=== PATIENT | female | born 1935 | race Caucasian/White ===

== ENCOUNTER 2016-08-04 09:45 | Outpatient (RCR) | payer MEDICARE, BC ==
[~2016-08-04 09:45] MED LIST: ASPIRIN 81M81 MG/TA2 PO; CRESTOR20 MG PO; GLUCOPHAGE1000 MG PO; K-DUR 2020 MEQ PO; LASIX 20MG TABL20 MG PO; LEVAQUIN 5500 MG/TA1 PO; LIPITOR20 MG PO; LOPID 600M600 MG/TAB PO; LOPRESSOR 225 MG/TAB PO; LORTAB 5/500 501 TAB PO; MIRALAX PA17 GM/Dose PO; NEXIUM 20MG CAP20 MG PO; NORCO 325 MG-51 TAB PO; PLAVIX 75MG TAB75 MG PO; PRINIVIL10 MG PO; PROTONIX 40MG T40 MG PO; PROTONIX40 MG/Pack PO; SYNTHROID0.075 MG/T PO; SYNTHROID0.1 MG PO; TYLENOL 325MG325 MG PO; VITAMIN D1000 IU PO; VITAMIN D31000 IU PO; ZOFRAN 4MG T4 MG/TAB PO
== END 2016-08-05 14:26 | disposition home or self-care (01) ==
LOC: WSOT 09:45
DX: M79.641 Pain in right hand (principal); M19.041 Primary osteoarthritis, right hand; M79.642 Pain in left hand; M19.042 Primary osteoarthritis, left hand
CPT/HCPCS: G8987-GO; G8988-GO; G8989-GO

== ENCOUNTER 2017-08-12 10:45 | Outpatient (RCR) | payer MEDICARE, BC ==
[~2017-08-12 10:45] MED LIST changes: -VITAMIN D1000 IU PO; +VITAMIND3 5000 PO
[2017-09-22] MEDS ORDERED: ZANTAC 7575 MG PO (17:24)
[2017-09-22] MEDS ORDERED: LIPITOR20 MG PO (17:30)
[2017-09-24] MEDS ORDERED: CLEOCIN HCL300 MG PO (20:04)
== END 2017-09-27 09:00 | disposition home or self-care (01) ==
LOC: MKS.ESL.PT 10:45
DX: R25.2 Cramp and spasm (principal)
CPT/HCPCS: G8978-GP; G8979-GP; G8980-GP

== ENCOUNTER 2018-01-25 10:30 | Outpatient (RCR) | payer MEDICARE, BC ==
[~2018-01-25 10:30] MED LIST changes: +CLEOCIN HCL300 MG PO; +ZANTAC 7575 MG PO
== END 2018-01-26 10:37 | disposition home or self-care (01) ==
LOC: MKS.ESL.PT 10:30
DX: R26.89 Other abnormalities of gait and mobility (principal); R29.6 Repeated falls
CPT/HCPCS: G8981-GP; G8982-GP; G8983-GP

== ENCOUNTER → 2018-03-16 | Outpatient (CLI) | payer MEDICARE, BC | LOC: MC.RAD 13:40 | DX: Z12.31 Encounter for screening mammogram for malignant neoplasm of breast (principal) ==

== ENCOUNTER → 2018-05-30 | Outpatient (CLI) | payer MEDICARE, BC ==
[2018-05-30 07:27] LABS: HEMOGLOBIN 11.8 g/dl (12.5-16.0); MEAN CELL VOLUME 98 fl (80.0-100.0); MEAN CORPUSCULAR HEMOGLOBIN 32 pg (27.0-31.0); MEAN CORPUSCULAR HGB CONC 32 g/dl (33.0-37.0); MEAN PLATELET VOLUME 10.2 fl (7.4-10.4); PLATELET COUNT 208 K/mm3 (130-400); RED BLOOD COUNT 3.72 M/mm3 (4.10-5.30); REDCELL DISTRIBUTION WIDTH-CV 13.4 % (11.5-14.5)
[2018-05-30 07:30] LABS: HEMATOCRIT 36.6 % (37.0-47.0)
[2018-05-30 07:35] LABS: PROTHROMBIN TIME 11.9 SECONDS (9.7-12.8)
[2018-05-30 07:42] LABS: CALCIUM 9.7 mg/dL (8.4-10.2); CREATININE, serum 1.3 mg/dL (0.52-1.25); POTASSIUM 3.8 mmol/L (3.4-5.0)
== END ==
LOC: COL.LAB 07:02
PROVIDERS: Internal Medicine Interventional Cardiology
DX: I49.5 Sick sinus syndrome (principal)

== ENCOUNTER 2018-12-01 09:21 | Outpatient (RCR) | payer MEDICARE, BC | END 2019-03-01 | LOC: MKS.ESL.PT | DX: R26.89 Other abnormalities of gait and mobility (principal); R29.6 Repeated falls ==

== ENCOUNTER → 2019-04-03 | Outpatient (CLI) | payer MEDICARE, BC | LOC: MC.RAD 09:30 | DX: Z12.31 Encounter for screening mammogram for malignant neoplasm of breast (principal) ==

== ENCOUNTER 2019-09-03 16:47 | Observation (INO) | payer MEDICARE, BC ==
[~2019-09-03] VITALS: Ht 157.5 cm; Wt 53.4 kg
[2019-09-03 17:33] LABS: BASO # 0.1 (0.0-0.2); EOS # 0.1 (0.0-0.7); EOS % 1.8 % (0-4.0); GRAN # 4.6 (1.4-6.5); GRAN % 59.8 % (42.2-75.2); HEMATOCRIT 37.7 % (37.0-47.0); HEMOGLOBIN 11.9 g/dl (12.5-16.0); LYMPH # 2.2 (1.2-3.4); MEAN CELL VOLUME 99 fl (80.0-100.0); MEAN CORPUSCULAR HEMOGLOBIN 31 pg (27.0-31.0); MEAN CORPUSCULAR HGB CONC 32 g/dl (33.0-37.0); MEAN PLATELET VOLUME 10.4 fl (7.4-10.4); MONO # 0.6 (0.1-0.6); MONO % 8.3 % (1.7-9.3); PLATELET COUNT 243 K/mm3 (130-400); REDCELL DISTRIBUTION WIDTH-CV 14.1 % (11.5-14.5)
[2019-09-03 17:36] LABS: ALANINE AMINOTRANSFERASE 18 U/L (4-34); ALBUMIN 4.3 gm/dL (3.5-5.0); ALKALINE PHOSPHATASE 89 U/L (50-136); ANION GAP 10 mmol/L (7-16); AST,SGOT 30 U/L (15-37); BILIRUBIN,TOTAL 0.4 mg/dL (0.0-1.0); BLOOD UREA NITROGEN 32 mg/dL (7-17); CALCIUM 10.1 mg/dL (8.4-10.2); CARBON DIOXIDE 29 mmol/L (22-30); CHLORIDE 103 mmol/L (98-107); CREATININE, serum 1.23 (0.52-1.25); GLUCOSE 94 mg/dL (74-106); LIPASE 126 U/L (23-300); POTASSIUM 4.1 mmol/L (3.4-5.0); SODIUM 143 mmol/L (137-145); TOTAL PROTEIN 7.5 gm/dL (6.4-8.2)
[2019-09-03 17:51] LABS: TROPONIN-I < 0.012 ng/mL (0.000-0.035)
[2019-09-03 18:10] LABS: COLLECTION METHOD CLEAN CATCH
[2019-09-03 18:15] LABS: PH 5 (5-8); SQUAMOUS EPITHELIAL None Seen /hpf; URINE APPEARANCE Clear; URINE BACTERIA None Seen /hpf; URINE BILIRUBIN Negative (NEGATIVE); URINE BLOOD Negative (NEGATIVE); URINE COLOR Straw; URINE GLUCOSE Negative (NEGATIVE); URINE KETONE Negative (NEGATIVE); URINE LEUKOCYTE ESTERASE Negative (NEGATIVE); URINE NITRATE Negative (NEGATIVE); URINE PROTEIN(semi-quant) Negative (NEGATIVE); URINE RBC 0-2 /hpf; URINE UROBILINOGEN Negative (NEGATIVE)
[2019-09-03] MEDS ORDERED: TOPROL XL 25MG25 MG PO (20:52)
[2019-09-03] MEDS ORDERED: LIPITOR 80MG80 MG PO (20:53)
[2019-09-03] MEDS ORDERED: NEURONTIN100 MG/CAP PO (20:53)
[2019-09-03] MEDS ORDERED: NITROSTAT0.4 MG/TAB SL (20:54)
[2019-09-03 21:33] LABS: INR 1.1 (0.8-3.0); PROTHROMBIN TIME 12.9 SECONDS (9.7-12.8)
--- NOTE | 2019-09-03 21:35 | NUR ---
Received patient from ER via stretcher. Patient is alert and oriented. On standby assist. Patient states she doesn't have chest pain at the moment. With IV at right AC, infusing NS. Assessment done. Patient asked if she can have something to eat or drink. This nurse called RITA De Oliveira and she said she can eat anything for now but NPO by midnight. Gave box of sandwich to patient, was able to consume 50%.
[2019-09-03 21:36] LABS: PARTIAL THROMBOPLASTIN TIME 33.7 SECONDS (26.0-37.0)
[2019-09-03 21:41] VITALS: BP 142/57; PULSE 80; TEMP 97.6
[2019-09-03 21:56] LABS: TROPONIN-I 3 HR POST INITIAL < 0.012 ng/mL (0.000-0.034)
[2019-09-03 22:07] LABS: MAGNESIUM 1.8 mg/dL (1.6-2.3)
[2019-09-03] MEDS ORDERED: FOSAMAX 70MG TA70 MG PO (22:15)
[2019-09-03] MEDS ORDERED: TYLENOL 500MG500 MG PO (22:16)
[2019-09-03] MEDS ORDERED: ACIDOPHILIS PO (22:18)
[2019-09-03] MEDS ORDERED: ZITHROMAX500 M2 PO (22:18)
[2019-09-03] MEDS ORDERED: B-12 500 MCG PO (22:19)
[2019-09-03] MEDS ORDERED: TYLENOL 8 HR PO (22:22)
[2019-09-03 23:22] VITALS: BP 130/53; PULSE 64; TEMP 97.6
[2019-09-04] VITALS (10 sets, daily range): BP systolic 98–141; BP diastolic 45–64; PULSE 58–85; TEMP 97.6–98.2
[2019-09-04 06:54] LABS: ALANINE AMINOTRANSFERASE 16 U/L (4-34); ALBUMIN 3.4 gm/dL (3.5-5.0); ALKALINE PHOSPHATASE 70 U/L (50-136); ANION GAP 7 mmol/L (7-16); AST,SGOT 24 U/L (15-37); BILIRUBIN,TOTAL 0.3 mg/dL (0.0-1.0); BLOOD UREA NITROGEN 26 mg/dL (7-17); CALCIUM 8.7 mg/dL (8.4-10.2); CARBON DIOXIDE 23 mmol/L (22-30); CHLORIDE 111 mmol/L (98-107); CHOLESTEROL 137 mg/dL (120-200); CHOLESTEROL RISK RATIO 3.3; CREATININE, serum 1.08 (0.52-1.25); GLUCOSE 88 mg/dL (74-106); HDL CHOLESTEROL 41 mg/dL; LDL CHOLESTEROL 74 mg/dL; POTASSIUM 3.9 mmol/L (3.4-5.0); SODIUM 141 mmol/L (137-145); TRIGLYCERIDE 110 mg/dL
[2019-09-04 07:00] LABS: BASO # 0.1 (0.0-0.2); BASO % 0.9 % (0.0-2.0); EOS # 0.1 (0.0-0.7); GRAN # 3.9 (1.4-6.5); GRAN % 56.5 % (42.2-75.2); HEMOGLOBIN 10.3 g/dl (12.5-16.0); LYMPH # 2.1 (1.2-3.4); LYMPH % 30.9 % (20.0-51.0); MEAN CELL VOLUME 98 fl (80.0-100.0); MEAN CORPUSCULAR HEMOGLOBIN 31 pg (27.0-31.0); MEAN CORPUSCULAR HGB CONC 32 g/dl (33.0-37.0); MEAN PLATELET VOLUME 10.4 fl (7.4-10.4); MONO # 0.7 (0.1-0.6); MONO % 9.4 % (1.7-9.3); PLATELET COUNT 196 K/mm3 (130-400); RED BLOOD COUNT 3.32 M/mm3 (4.10-5.30); REDCELL DISTRIBUTION WIDTH-CV 14.1 % (11.5-14.5)
[2019-09-04 07:07] LABS: HEMATOCRIT 32.6 % (37.0-47.0)
[2019-09-04 07:08] LABS: TROPONIN-I < 0.012 ng/mL (0.000-0.035)
--- NOTE | 2019-09-04 07:23 | NUR ---
Patient had an uneventful night. Denies any chest pain. She is independent and able to ambulate going to the bathroom. Maintained on NPO.
--- NOTE | 2019-09-04 10:20 | NUR ---
PATIENT IS ALERT AND ORIENTED. DENIES ANY PAIN AT THE MOMENT BUT HAD AN EPISODE OF DULL CHEST PAIN VERY EARLY THIS MORNING. PATIENT HAD AN ECHO THIS MORNING. DAUGHTER VISITING AT BED SIDE.
--- NOTE | 2019-09-04 16:19 | NUR ---
Entry Level Drafter met with patient, patient's Wolf (ph#[phone]), and patient's daughter Laverne (ph#[phone]) to discuss discharge planning. Patient lives in [place] with Wolf and sees Dr. Gilliland for primary care. Patient obtains medications from [facility] pharmacy with no difficulties. Patient states she sometimes picks up her medications and sometimes she has them delivered. Patient does not use any DME and reports independence with ADLS. Patient reports she has DPOA-HC completed and plans to return home upon discharge. SW to continue to follow as needed.
--- NOTE | 2019-09-04 17:24 | NUR ---
patient is alert and oriented. denies any pain at this time. pt had echo and artemio scan today. diet was changed from NPO to AHA. Further decision will be determined by the result of artemio scan. Patient is a possible discharge for 09/05/19 if no further action is required. family came visiting today.
--- NOTE | 2019-09-04 18:10 | NUR ---
patient refuse ducosate, she said she only take it once a week.
--- NOTE | 2019-09-04 20:46 | NUR ---
Pt doing well. Alert and oriented with vss. Heart and lung sounds normal. On tele, paced normal sinus. Bowel sounds audible all quad. Voiding clear yellow urine. Stated she had diarrhea this AM but has since resolved. Ambulatory in room. Pedal pulses present and strong. Pt denies pain, chest pain, sob. Denies needs at this time. Call light within reach. Will continue to monitor
[2019-09-05 00:35] VITALS: BP 103/52; PULSE 61; TEMP 98
[2019-09-05 04:56] VITALS: BP 106/46; PULSE 61; TEMP 98.3
--- NOTE | 2019-09-05 05:47 | NUR ---
Pt has done very well throughout night. No needs. Denies chest pain or SOB. Ambulatory in room. Denies needs at this time, call light within reach, will continue to monitor
[2019-09-05 08:05] VITALS: BP 115/56; PULSE 65; TEMP 98.1
--- NOTE | 2019-09-05 10:00 | NUR ---
DISCHARGE INFORMATION PROVIDED TO PT. NO QUESTIONS VOICED. IV REMOVED BY GREY KEITH, NO ISSUES NOTED. NO C/O CHEST PAIN TODAY. WAS EAGER TO DISCHARGE. TELE REMOVED SO PT CAN GET DRESSED. PT CALLED HER FOR A RIDE AND WILL LET US KNOW UPON HIS ARRIVAL TO GO HOME.
--- NOTE | 2019-09-05 10:21 | NUR ---
Pump Runner attended clinical rounds with the team and patient to discharge home today. No additional needs identified at this time.
--- NOTE | 2019-09-05 10:30 | NUR ---
PT ESCORTED EMELI VIA W/C BY THIS NURSE. ASSISTED TO CAR. DRIVING HER HOME.
== END 2019-09-05 10:30 | disposition home or self-care (01) ==
LOC: COL.ER 16:47 → MEDICAL 19:37
PROVIDERS: Emergency Medicine; Nurse Practitioner Family; ADMIT Student in an Organized Health Care Education/Training Program
DX: R07.9 Chest pain, unspecified (principal); I10 Essential (primary) hypertension; E78.5 Hyperlipidemia, unspecified; I25.10 Atherosclerotic heart disease of native coronary artery without angina pectoris; E11.9 Type 2 diabetes mellitus without complications; E03.9 Hypothyroidism, unspecified; I08.1 Rheumatic disorders of both mitral and tricuspid valves; Z95.1 Presence of aortocoronary bypass graft; Z95.2 Presence of prosthetic heart valve; Z85.72 Personal history of non-Hodgkin lymphomas; Z88.1 Allergy status to other antibiotic agents; Z88.0 Allergy status to penicillin; Z88.8 Allergy status to other drugs, medicaments and biological substances; Z79.82 Long term (current) use of aspirin; Z86.73 Personal history of transient ischemic attack (TIA), and cerebral infarction without residual deficits; Z92.21 Personal history of antineoplastic chemotherapy; Z90.710 Acquired absence of both cervix and uterus; Z90.49 Acquired absence of other specified parts of digestive tract; Z95.0 Presence of cardiac pacemaker
CPT/HCPCS: A9500; G0378; J1650; J2785; J7030; Q9967

== ENCOUNTER 2019-09-07 16:41 | Emergency (ER) | payer MEDICARE, BC ==
[~2019-09-07] VITALS: Ht 157.5 cm; Wt 50.9 kg
[2019-09-07 17:04] VITALS: BP 137/63; PULSE 62; TEMP 97.6
== END 2019-09-07 19:06 | disposition left against medical advice (07) ==
LOC: COL.ER 16:41
DX: S00.83XA Contusion of other part of head, initial encounter (principal); S60.031A Contusion of right middle finger without damage to nail, initial encounter; W19.XXXA Unspecified fall, initial encounter

== ENCOUNTER → 2019-09-07 | Outpatient (CLI) | payer MEDICARE, BC ==
[~2019-09-07] MED LIST changes: +ACIDOPHILIS PO; +B-12 500 MCG PO; +FOSAMAX 70MG TA70 MG PO; +LIPITOR 80MG80 MG PO; +NEURONTIN100 MG/CAP PO; +NITROSTAT0.4 MG/TAB SL; +TOPROL XL 25MG25 MG PO; +TYLENOL 500MG500 MG PO; +TYLENOL 8 HR PO; +ZITHROMAX500 M2 PO
== END ==
LOC: COL.RAD 15:06
DX: G44.319 Acute post-traumatic headache, not intractable (principal); S62.91XA Unspecified fracture of right hand, initial encounter for closed fracture; M19.041 Primary osteoarthritis, right hand; M19.031 Primary osteoarthritis, right wrist; G31.9 Degenerative disease of nervous system, unspecified; Z98.890 Other specified postprocedural states

== ENCOUNTER 2019-09-08 10:11 | Emergency (ER) | payer MEDICARE, BC ==
[~2019-09-08] VITALS: Ht 157.5 cm; Wt 50.9 kg
[2019-09-08 10:14] VITALS: BP 148/65; PULSE 85; TEMP 97.7
== END 2019-09-08 10:28 | disposition home or self-care (01) ==
LOC: COL.ER 10:11
DX: S60.031A Contusion of right middle finger without damage to nail, initial encounter (principal); Z79.82 Long term (current) use of aspirin; W19.XXXA Unspecified fall, initial encounter

== ENCOUNTER → 2019-11-05 | Outpatient (CLI) | payer MEDICARE, BC ==
[2019-11-05 21:08] LABS: ANION GAP 6 mmol/L (7-16); BLOOD UREA NITROGEN 26 mg/dL (7-17); CALCIUM 9.6 mg/dL (8.4-10.2); CARBON DIOXIDE 29 mmol/L (22-30); CHLORIDE 102 mmol/L (98-107); CREATININE, serum 1.06 (0.52-1.25); GLUCOSE 81 mg/dL (74-106); POTASSIUM 4.4 mmol/L (3.4-5.0); SODIUM 138 mmol/L (137-145)
[2019-11-05 21:14] LABS: C-REACTIVE PROTEIN < 0.5 mg/dL (0.0-0.9)
== END ==
LOC: ZCOL.LAB 16:13
PROVIDERS: Internal Medicine Interventional Cardiology
DX: E50.9 Vitamin A deficiency, unspecified (principal); R07.89 Other chest pain

== ENCOUNTER → 2019-11-06 | Outpatient (CLI) | payer MEDICARE, BC | LOC: COL.RAD 09:09 | DX: E50.9 Vitamin A deficiency, unspecified (principal); M47.819 Spondylosis without myelopathy or radiculopathy, site unspecified; R07.89 Other chest pain; R79.89 Other specified abnormal findings of blood chemistry; R91.1 Solitary pulmonary nodule | CPT/HCPCS: Q9967 ==

== ENCOUNTER 2020-01-21 09:53 | Emergency (ER) | payer MEDICARE, BC ==
[~2020-01-21] VITALS: Ht 157.5 cm; Wt 50.9 kg
[2020-01-21 10:07] VITALS: TEMP 98.4
[2020-01-21] MEDS ORDERED: ULTRAM 50MG TAB50 MG PO (11:18)
[2020-01-21 13:32] VITALS: BP 147/75; PULSE 76
== END 2020-01-21 13:30 | disposition home or self-care (01) ==
LOC: COL.ER 09:53
DX: S30.0XXA Contusion of lower back and pelvis, initial encounter (principal); Z95.1 Presence of aortocoronary bypass graft; W10.9XXA Fall (on) (from) unspecified stairs and steps, initial encounter; Y92.009 Unspecified place in unspecified non-institutional (private) residence as the place of occurrence of the external cause

== ENCOUNTER → 2020-02-29 | Outpatient (CLI) | payer MEDICARE, BC ==
[~2020-02-29] MED LIST changes: +ULTRAM 50MG TAB50 MG PO
== END ==
LOC: COL.RAD 13:42
DX: G31.9 Degenerative disease of nervous system, unspecified (principal); G44.52 New daily persistent headache (NDPH); Z98.890 Other specified postprocedural states

== ENCOUNTER → 2020-05-07 | Outpatient (CLI) | payer MEDICARE, BC | LOC: COL.RAD 05-06 09:00 | DX: S32.030A Wedge compression fracture of third lumbar vertebra, initial encounter for closed fracture (principal); M48.061 Spinal stenosis, lumbar region without neurogenic claudication; M51.26 Other intervertebral disc displacement, lumbar region ==

== ENCOUNTER 2020-05-20 12:40 | Outpatient (CLI) | payer MEDICARE, BC ==
[2020-05-20] VITALS (7 sets, daily range): BP systolic 132–156; BP diastolic 59–70; PULSE 60–69; TEMP 98.3
[~2020-05-20] VITALS: Ht 157.5 cm; Wt 48.2 kg
--- NOTE | 2020-05-20 14:12 | NUR ---
SEE MERGE DOCUMENTATION FOR MEDICATION ADMINISTRATION TIMES AND INTRA/POST PROCEDURE SEDATION ASSESSMENTS.
--- NOTE | 2020-05-20 15:00 | NUR ---
Report from Carlos KEITH. Transferred from component lab tech post vertebroplasty by bed. Two bandaids to back CD&I. Denies pain and needs at this time
--- NOTE | 2020-05-20 16:10 | NUR ---
INT discontinued intact. No c/o pain when ambulating to bathroom. Discharge instructions given. Transferred to private car by huang
== END 2020-05-20 16:47 | disposition home or self-care (01) ==
LOC: COL.CAR 12:40
DX: S32.030A Wedge compression fracture of third lumbar vertebra, initial encounter for closed fracture (principal); Z90.710 Acquired absence of both cervix and uterus; Z90.49 Acquired absence of other specified parts of digestive tract; Z90.721 Acquired absence of ovaries, unilateral; Z95.1 Presence of aortocoronary bypass graft; Z95.2 Presence of prosthetic heart valve; Z88.1 Allergy status to other antibiotic agents; Z88.2 Allergy status to sulfonamides; Z88.0 Allergy status to penicillin; Z87.891 Personal history of nicotine dependence
CPT/HCPCS: J2250; J3010; J7120

== ENCOUNTER 2020-08-05 16:37 | Emergency (ER) | payer MEDICARE, BC ==
[~2020-08-05] VITALS: Ht 157.5 cm; Wt 48.2 kg
[2020-08-05 16:50] VITALS: TEMP 98.1
[2020-08-05 17:34] VITALS: BP 130/62; PULSE 81
== END 2020-08-05 17:34 | disposition home or self-care (01) ==
LOC: COL.ER 16:37
DX: R07.9 Chest pain, unspecified (principal); I25.10 Atherosclerotic heart disease of native coronary artery without angina pectoris; Z20.822 Contact with and (suspected) exposure to COVID-19; Z95.9 Presence of cardiac and vascular implant and graft, unspecified; Z88.1 Allergy status to other antibiotic agents; Z88.0 Allergy status to penicillin; Z88.2 Allergy status to sulfonamides

== ENCOUNTER → 2021-01-30 | Outpatient (CLI) | payer MEDICARE, BC ==
[2021-01-30 16:09] LABS: BASO # 0.1 (0.0-0.2); BASO % 0.9 % (0.0-2.0); EOS # 0.2 (0.0-0.7); EOS % 2.3 % (0-4.0); GRAN # 4.6 (1.4-6.5); GRAN % 59.5 % (42.2-75.2); HEMOGLOBIN 11.6 g/dl (12.5-16.0); LYMPH # 2.2 (1.2-3.4); LYMPH % 28.3 % (20.0-51.0); MEAN CELL VOLUME 96 fl (80.0-100.0); MEAN CORPUSCULAR HEMOGLOBIN 31 pg (27.0-31.0); MEAN CORPUSCULAR HGB CONC 32 g/dl (33.0-37.0); MEAN PLATELET VOLUME 10.4 fl (7.4-10.4); MONO # 0.7 (0.1-0.6); MONO % 8.7 % (1.7-9.3); PLATELET COUNT 158 K/mm3 (130-400); RED BLOOD COUNT 3.72 M/mm3 (4.10-5.30); REDCELL DISTRIBUTION WIDTH-CV 13.4 % (11.5-14.5)
[2021-01-30 16:11] LABS: HEMATOCRIT 35.8 % (37.0-47.0)
[2021-01-30 16:12] LABS: ALBUMIN 3.6 gm/dL (3.5-5.0); BILIRUBIN,TOTAL 0.6 mg/dL (0.0-1.0); CALCIUM 9.3 mg/dL (8.4-10.2); CREATININE, serum 0.9 (0.52-1.25); POTASSIUM 4.2 mmol/L (3.4-5.0); TOTAL PROTEIN 6.1 gm/dL (6.4-8.2)
== END ==
LOC: ZCOL.LAB 15:34
PROVIDERS: Family Medicine
DX: R42 Dizziness and giddiness (principal)

== ENCOUNTER 2021-03-10 10:15 | Emergency (ER) | payer MEDICARE, BC ==
[~2021-03-10] VITALS: Ht 157.5 cm; Wt 50.9 kg
[2021-03-10 10:17] VITALS: TEMP 97.7
[2021-03-10 11:58] VITALS: BP 155/65; PULSE 71
== END 2021-03-10 12:00 | disposition home or self-care (01) ==
LOC: COL.ER 10:15
DX: S00.83XA Contusion of other part of head, initial encounter (principal); W18.09XA Striking against other object with subsequent fall, initial encounter

== ENCOUNTER → 2021-03-10 | Outpatient (CLI) | payer MEDICARE, BC | LOC: COL.RAD 02-18 08:15 | DX: G31.9 Degenerative disease of nervous system, unspecified (principal); I67.89 Other cerebrovascular disease ==

== ENCOUNTER → 2021-03-12 | Outpatient (CLI) | payer MEDICARE, BC | LOC: COL.RAD 09:18 | DX: M18.9 Osteoarthritis of first carpometacarpal joint, unspecified (principal); M19.031 Primary osteoarthritis, right wrist ==

== ENCOUNTER 2021-10-12 12:38 | Inpatient (IN) | payer MEDICARE, BC ==
[~2021-10-12] VITALS: Ht 157.5 cm; Wt 52.3 kg
--- NOTE | 2021-10-12 15:24 | NUR ---
arrived on unit per stretcher from ED, assisted over to be by use of sheets and staff, c/o pain during movement but once lying still states pain is better, INT to left AC, lab in and blood draw, KEN Gonzalez talking with family,
[2021-10-12 15:34] LABS: BASO # 0.1 K/mm3 (0.0-0.2); BASO % 0.4 % (0.0-2.0); EOS % 0.1 % (0.0-4.0); GRAN # 12.5 K/mm3 (1.4-6.5); GRAN % 82.5 % (42.2-75.2); HEMATOCRIT 37.2 % (37.0-47.0); HEMOGLOBIN 12.4 g/dl (12.5-16.0); LYMPH # 1.6 K/mm3 (1.2-3.4); LYMPH % 10.8 % (20.0-51.0); MEAN CELL VOLUME 93 fl (80.0-100.0); MEAN CORPUSCULAR HEMOGLOBIN 31 pg (27-31); MEAN CORPUSCULAR HGB CONC 33 g/dl (33.0-37.0); MEAN PLATELET VOLUME 9.4 fl (7.4-10.4); MONO # 0.9 K/mm3 (0.1-0.6); MONO % 5.7 % (1.7-9.3); PLATELET COUNT 154 K/mm3 (130-400); RED BLOOD COUNT 4.01 M/mm3 (4.10-5.30)
[2021-10-12 15:37] VITALS: BP 177/56; PULSE 65; TEMP 98
[2021-10-12 15:41] LABS: INR 1.1 (0.8-3.0); PROTHROMBIN TIME 12.5 SECONDS (9.7-12.8)
[2021-10-12 15:51] LABS: ALBUMIN 3.6 gm/dL (3.4-4.8); BILIRUBIN,TOTAL 0.5 mg/dL (0.2-1.2); CALCIUM 8.8 mg/dL (8.4-10.2); CREATININE, serum 1.05 mg/dL (0.57-1.11); POTASSIUM 3.9 mmol/L (3.5-4.5); TOTAL PROTEIN 6.3 gm/dL (6.2-8.1)
--- NOTE | 2021-10-12 16:08 | NUR ---
states pain is 5/10 and medicated with morphine 2mg slow IV, and daughter remain at bedside
--- NOTE | 2021-10-12 16:52 | NUR ---
supper was ordered by her daughter, patient states pain is less than 5 now
--- NOTE | 2021-10-12 17:00 | NUR ---
pacheco cath placed under hvac operations technician, tolerated well, UA to lab
[2021-10-12 17:21] LABS: COLLECTION METHOD CLEAN CATCH
[2021-10-12 17:28] LABS: MUCOUS Present (NOT PRESENT); PH 5 (5-8); SQUAMOUS EPITHELIAL None Seen /hpf (0-10); URINE APPEARANCE Clear (CLEAR/HAZY); URINE BACTERIA None Seen /hpf (NONE SEEN); URINE BILIRUBIN Negative (NEGATIVE); URINE BLOOD 1+ (NEGATIVE); URINE COLOR Yellow (YELLOW); URINE GLUCOSE Negative (NEGATIVE); URINE KETONE Negative (NEGATIVE); URINE LEUKOCYTE ESTERASE Negative (NEGATIVE); URINE NITRATE Negative (NEGATIVE); URINE PROTEIN(semi-quant) Negative (NEGATIVE); URINE RBC 0-2 /hpf (0-2); URINE UROBILINOGEN Negative (NEGATIVE)
--- NOTE | 2021-10-12 18:03 | NUR ---
sitting in bed eating supper, denies needs
[2021-10-12 20:41] VITALS: BP 160/63; PULSE 70; TEMP 98.2
[2021-10-13] VITALS (14 sets, daily range): BP systolic 111–168; BP diastolic 42–66; PULSE 70–103; TEMP 98.2–99
--- NOTE | 2021-10-13 04:00 | NUR ---
Report received from day shift nurse. Patient is here due to a R hip fx, with plans for surgery on 10/13 in the afternoon if criteria is met, consent has not been signed at this moment. Patient is A&Ox3 and pleasant. Patient is NPO and has had no complaints of pain thus far this shift. Patient had a quiet evening and rested quietly throughout. No other complaints at this time, call light within reach.
--- NOTE | 2021-10-13 08:20 | NUR ---
Pt doing okay this am, states her pain is okay as long as she is not moving. Pt does not have any IVF infusing, notified KEN Bates. Ortho has been in to see patient, plans for OR this afternoon
--- NOTE | 2021-10-13 10:08 | NUR ---
First visit from the sand caster apprentice. No needs right now.
--- NOTE | 2021-10-13 10:42 | NUR ---
Business Continuity Management Director met with patient to discuss discharge planning. Patient lives at [facility] with her , Gagan (ph#[phone]) and sees Dr. Mcgee for primary care. Patient has medications delivered to her by [facility]. Patient uses a walker for ambulation and is normally independent with ADLS. Patient is unsure if she's ever done DPOA-HC but states her would likely know. Patient may have surgery later today. SW discussed likely need for post acute rehab and patient is in agreement. Patient would like referral sent to [facility]. SW contacted Verna at [facility] and faxed referral. Verna advised they can accept at time of discharge. Discharge Plan: [facility]
--- NOTE | 2021-10-13 12:00 | NUR ---
Pt doing well, states that pain is tolerable at this time. Pts daughter has been present most of the day, her did show up recently. Updated her and family on time of surgery. All questions answered.
--- NOTE | 2021-10-13 14:00 | NUR ---
Pt off the floor for surgery
--- NOTE | 2021-10-13 16:37 | NUR ---
Pt arrived back to the floor from [facility]. She is alert although drowsy. Family present in the room upon her arrival back. Pt not having any complaints of pain. She does quickly fall asleep, but wakes easily when spoken to.
--- NOTE | 2021-10-13 17:45 | NUR ---
Pt continues to do well with no pain complaints. Gave her some applesauce and aristides crackers. Pt stated that she wasn't very hungry. VSS. Incisions to right hip are CDI
--- NOTE | 2021-10-13 18:42 | NUR ---
pt doing well, tolerating the applesauce and crackers with no complaints of nausea. Pt reports that she is not very hungry and does not feel she wants a full meal tonight
[2021-10-14 04:13] VITALS: BP 124/46; PULSE 78; TEMP 98.9
--- NOTE | 2021-10-14 04:57 | NUR ---
Patient has had an uneventful evening. Patient is A&Ox3 and been pleasant thus far. Dressing on R hip is CD&I and patient has no complaints of pain. Patient able to tolerate oral intake. Will continue to monitor, call light within reach.
--- NOTE | 2021-10-14 07:53 | NUR ---
SHIFT ASSESSMENT COMPLETE. PT. A&0 X4. INCISION SITE IS CD&I WITH GUAZE AND TEGEDERM DRESSING. PT. HAS LR RUNNING AT 50ML/HR IN LEFT AC. MURDOCK IS IN PLACE AND DRAINING. BREAKFAST IS AT BEDSIDE. NO FURTHER NEEDS AT THIS TIME. CALL LIGHT WITHIN REACH.
[2021-10-14 08:00] VITALS: BP 126/40; PULSE 65; TEMP 98
[2021-10-14 11:38] VITALS: BP 127/34; PULSE 72; TEMP 98.8
--- NOTE | 2021-10-14 11:39 | NUR ---
Pepper Picker faxed clinical updates to Verna at [facility] and advised patient may discharge tomorrow. SW contacted patient's , Gagan to provide update. Gagan is in agreement with discharge plan. Discharge Plan: [facility]
[2021-10-14 16:00] VITALS: BP 130/35; PULSE 78; TEMP 98.7
[2021-10-14 20:08] VITALS: BP 149/48; PULSE 79; TEMP 100
--- NOTE | 2021-10-14 20:30 | NUR ---
Pt. sitting up in bed. Pt. is A&Ox3, assessment complete. Dressing to rt. hip CDI. Pt. denies pain at this time. Call light within reach.
[2021-10-15 00:06] VITALS: BP 121/46; PULSE 77; TEMP 98.3
[2021-10-15 03:59] VITALS: BP 117/63; PULSE 72; TEMP 98
[2021-10-15 05:59] LABS: BASO # 0.1 K/mm3 (0.0-0.2); BASO % 0.4 % (0.0-2.0); EOS # 0.1 K/mm3 (0.0-0.7); GRAN # 8.5 K/mm3 (1.4-6.5); GRAN % 74.3 % (42.2-75.2); LYMPH # 1.7 K/mm3 (1.2-3.4); MEAN CELL VOLUME 92 fl (80.0-100.0); MEAN CORPUSCULAR HGB CONC 33 g/dl (33.0-37.0); MEAN PLATELET VOLUME 10.4 fl (7.4-10.4); MONO % 8.9 % (1.7-9.3); PLATELET COUNT 104 K/mm3 (130-400); RED BLOOD COUNT 2.61 M/mm3 (4.10-5.30); REDCELL DISTRIBUTION WIDTH-CV 13.6 % (11.5-14.5)
[2021-10-15 06:22] LABS: HEMATOCRIT 23.9 % (37.0-47.0); MEAN CORPUSCULAR HEMOGLOBIN 30 pg (27-31)
[2021-10-15 06:23] LABS: HEMOGLOBIN 7.9 g/dl (12.5-16.0)
[2021-10-15 06:25] LABS: CALCIUM 8.4 mg/dL (8.4-10.2); CREATININE, serum 1.04 mg/dL (0.57-1.11); MAGNESIUM 1.7 mg/dL (1.6-2.6); POTASSIUM 4.1 mmol/L (3.5-4.5)
[2021-10-15 07:45] VITALS: BP 118/51; PULSE 77; TEMP 98.3
--- NOTE | 2021-10-15 08:39 | NUR ---
PT. ASSESSMENT COMPLETE. PT. A&O X4. PT. IS SITTING UP IN CHAIR. NO COMPLAINTS OF PAIN AT THIS TIME. DRESSING X3 ON RIGHT HIP IS CD&I. ICE TO RIGHT HIP. NO FURTHER NEEDS AT THIS TIME. CALL LIGHT WITHIN REACH.
[2021-10-15] MEDS ORDERED: VITAMIN C500 MG PO (09:06)
[2021-10-15] MEDS ORDERED: ASPI325T6 PO (09:06)
[2021-10-15] MEDS ORDERED: DUO-KAPS1 CAP PO (09:07)
[2021-10-15] MEDS ORDERED: ROXICODONE 55 MG/TAB PO (09:07)
[2021-10-15] MEDS ORDERED: FERRO-TIME325 MG PO (09:09)
--- NOTE | 2021-10-15 11:55 | NUR ---
Pt. is ready to discharge when she urinates. Bladder scan revealed 12ml of urine. Water and tea was provided, and the pt. encouraged to drink lots of fluids.
[2021-10-15 12:41] VITALS: BP 131/60; PULSE 93; TEMP 98.6
--- NOTE | 2021-10-15 14:30 | NUR ---
[facility] HERE TO TRANSPORT PT. PT. TRANSFERRED FROM CHAIR TO WHEELCHAIR AND LEFT THE FLOOR. IV AND MURDOCK PREVIOUSLY TAKEN OUT. BELONGINGS ALREADY TAKEN BY FAMILY. INFORMATION PACKET SENT WITH DOCK MANAGER. CALLED REPORT TO FACILITY. PT. DISCHARGED.
--- NOTE | 2021-10-15 14:48 | NUR ---
Rn Endocrinology faxed clinical updates to Verna at [facility] who advised they can accept today. SW met with patient to present and review IM form. Patient verbalized understanding and provided signature. SW placed form in chart then provided copy to patient. SW set up transport then contacted patient's , Gagan to update him on discharge. ALEXANDRE faxed discharge orders and covid results to Verna at [facility]. Discharge Plan: [facility]
== END 2021-10-15 14:30 | DRG 482 ==
LOC: COL.ER 12:38 → SURG 13:29
PROVIDERS: Orthopaedic Surgery Sports Medicine; Physician Assistant; ADMIT Internal Medicine
PROC: 0QH634Z Insertion of Internal Fixation Device into Right Upper Femur, Percutaneous Approach (ICD-10-PCS; principal; 2021-10-13 15:30)
DX: S72.21XA Displaced subtrochanteric fracture of right femur, initial encounter for closed fracture (principal); E03.9 Hypothyroidism, unspecified; M81.0 Age-related osteoporosis without current pathological fracture; E78.00 Pure hypercholesterolemia, unspecified; I25.10 Atherosclerotic heart disease of native coronary artery without angina pectoris; W01.0XXA Fall on same level from slipping, tripping and stumbling without subsequent striking against object, initial encounter; Y93.89 Activity, other specified; Y92.126 Garden or yard of nursing home as the place of occurrence of the external cause; Z95.1 Presence of aortocoronary bypass graft; Z95.4 Presence of other heart-valve replacement; Z95.0 Presence of cardiac pacemaker; Z85.72 Personal history of non-Hodgkin lymphomas; Z20.822 Contact with and (suspected) exposure to COVID-19
CPT/HCPCS: 99223-AI; 99232-AI; 99233-AI; 99239; A4314; A9284; C1713; C1769; J0690; J1170; J2250; J2270; J2704; J3010; J7030; J7120; J7121

== ENCOUNTER → 2021-10-20 | Outpatient (CLI) | payer MEDICARE, BC ==
[~2021-10-20] MED LIST changes: +ASPI325T6 PO; +DUO-KAPS1 CAP PO; +FERRO-TIME325 MG PO; +ROXICODONE 55 MG/TAB PO; +VITAMIN C500 MG PO
[2021-10-20 13:22] LABS: BASO # 0.1 K/mm3 (0.0-0.2); BASO % 0.7 % (0.0-2.0); EOS # 0.2 K/mm3 (0.0-0.7); GRAN % 69.5 % (42.2-75.2); HEMATOCRIT 24.4 % (37.0-47.0); HEMOGLOBIN 7.9 g/dl (12.5-16.0); LYMPH # 1.7 K/mm3 (1.2-3.4); LYMPH % 20.1 % (20.0-51.0); MEAN CELL VOLUME 98 fl (80.0-100.0); MEAN CORPUSCULAR HEMOGLOBIN 32 pg (27-31); MEAN CORPUSCULAR HGB CONC 32 g/dl (33.0-37.0); MEAN PLATELET VOLUME 9.5 fl (7.4-10.4); MONO # 0.6 K/mm3 (0.1-0.6); MONO % 7.2 % (1.7-9.3); PLATELET COUNT 358 K/mm3 (130-400); REDCELL DISTRIBUTION WIDTH-CV 15.5 % (11.5-14.5)
== END ==
LOC: ZCOL.LAB 12:38
PROVIDERS: Internal Medicine
DX: R68.89 Other general symptoms and signs (principal)